=== PATIENT | female | born 1980 | race Native Hawaiian/Other Pacific Islander ===

== ENCOUNTER 2019-03-24 08:47 | Emergency (ER) | payer OTHER ==
[2019-03-24 08:55] VITALS: BP 103/65
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
== END 2019-03-24 11:00 | disposition left against medical advice (07) ==
LOC: ED 08:47
DX: M54.6 Pain in thoracic spine (principal); V49.49XA Driver injured in collision with other motor vehicles in traffic accident, initial encounter; Y93.89 Activity, other specified; Y92.410 Unspecified street and highway as the place of occurrence of the external cause; Y99.8 Other external cause status
CPT/HCPCS: 99283